=== PATIENT | female | born 1975 | race Caucasian/White ===

== ENCOUNTER 2019-08-30 13:03 | Emergency (ER) | payer MEDICAID ==
[~2019-08-30] VITALS: Ht 175.3 cm; Wt 73.9 kg
[2019-08-30 13:17] VITALS: Ht 175.3 cm; Wt 73.9 kg
[2019-08-30 15:15] VITALS: BP 153/91
== END 2019-08-30 15:15 | disposition home or self-care (01) ==
LOC: ED 13:03
DX: M54.42 Lumbago with sciatica, left side (principal); Z98.890 Other specified postprocedural states
CPT/HCPCS: J1885; J7030

== ENCOUNTER 2020-09-19 13:44 | Emergency (ER) | payer MEDICAID, SELFPAY ==
[~2020-09-19] VITALS: Ht 175.3 cm; Wt 72.6 kg
[2020-09-19 13:47] VITALS: Ht 175.3 cm; Wt 72.6 kg
[2020-09-19 16:20] VITALS: BP 124/76
== END 2020-09-19 16:21 | disposition home or self-care (01) ==
LOC: ED 13:44
DX: U07.1 COVID-19 (principal); J12.89 Other viral pneumonia; Z98.890 Other specified postprocedural states
CPT/HCPCS: 87804; U0003